=== PATIENT | male | born 1985 | race Caucasian/White ===

== ENCOUNTER 2020-11-22 18:18 | Emergency (ER) | payer OTHER ==
[~2020-11-22 18:18] MED LIST: BACTRIM DS TAB1 EACH PO; CYCLOBENZAPRINE10 MG PO; DELSYM30 MG/5 ML PO; EXPECTORANT200 MG PO; IBUPROFEN600 MG PO; KEFLEX CAP 500500 MG PO; LODINE CAP 300300 MG PO; PREDNISONE 50 M50 MG PO; VENTOLIN HFA 66.7 GM INH
== END 2020-11-22 23:00 | disposition left against medical advice (07) ==
LOC: ER1 18:18
DX: Z53.21 Procedure and treatment not carried out due to patient leaving prior to being seen by health care provider (principal)
CPT/HCPCS: 93005

== ENCOUNTER 2021-07-02 01:44 | Emergency (ER) | payer OTHER | END 2021-07-02 04:00 | disposition home or self-care (01) | LOC: ER1 01:44 | DX: S06.9X9A Unspecified intracranial injury with loss of consciousness of unspecified duration, initial encounter (principal); R11.0 Nausea; F17.290 Nicotine dependence, other tobacco product, uncomplicated; W22.8XXA Striking against or struck by other objects, initial encounter | CPT/HCPCS: 70450; 99284 ==